=== PATIENT | male | born 1995 | race Caucasian/White ===

== ENCOUNTER 2021-09-08 06:23 | Emergency (ER) | payer SELFPAY ==
[~2021-09-08] VITALS: Ht 170.2 cm; Wt 69.0 kg
[2021-09-08 06:26] VITALS: BP 145/83
== END 2021-09-08 07:06 | disposition left against medical advice (07) ==
LOC: ER 06:23
DX: Z53.21 Procedure and treatment not carried out due to patient leaving prior to being seen by health care provider (principal); I49.9 Cardiac arrhythmia, unspecified
CPT/HCPCS: 93005; 99283